=== PATIENT | female | born 1940 | race Caucasian/White ===

== ENCOUNTER → 2017-06-05 | Outpatient (CLI) | payer MEDICARE, OTHER ==
[~2017-06-05] MED LIST: ASPIR 8181 MG PO; ATORVASTATIN CA40 MG PO; CARVEDILOL12.5 MG PO; CELEXA20 MG PO; COZAAR 25 MG TA25 MG PO; EVISTA PO; FISH OIL 1,001000 M2 PO; LANTUS SUBQ; METFORMIN HCL500 MG PO; NITROGLYCERIN0.4 MG SUBLING
== END ==
LOC: M.RAD 09:51
DX: Z12.31 Encounter for screening mammogram for malignant neoplasm of breast (principal)

== ENCOUNTER → 2018-07-24 | Outpatient (CLI) | payer MEDICARE, OTHER | LOC: M.RAD 07-19 15:36 | DX: Z12.31 Encounter for screening mammogram for malignant neoplasm of breast (principal); M85.80 Other specified disorders of bone density and structure, unspecified site; E28.39 Other primary ovarian failure ==

== ENCOUNTER 2019-06-29 08:30 | Inpatient (IN) | payer MEDICARE, OTHER ==
[~2019-06-29] VITALS: Ht 157.5 cm; Wt 66.2 kg
--- NOTE | ~2019-06-29 | CON ---
[address] [address] CONSULTATION Name: MAURICE DAVIDSON Room: [address] [place] .#: [id number] Admission: 06/29/19 Attend Phys: Katey Humphries Discharge: Date of : 42 Report #: [id number] THIS REPORT FOR: //name// cc: Bipin Weathers MD, Tuongvan T. MD ~ THIS REPORT FOR: //name// CC: Bipin Lopes DATE OF SERVICE: 06/30/2019 REASON FOR CONSULT: Blood in the sputum. HISTORY OF PRESENT ILLNESS: This is a 78-year-old female who was admitted to hospital with hemoptysis. She reports that has been a chronic issue for her and since she was noticing more and more blood in her sputum, this prompted her to come to hospital. She had a CT of the chest, which did not reveal any lung mass. The patient denies any significant chronic upper GI or lower GI symptoms. Since hospitalization, she has been having symptoms of nausea and vomiting. There is also mild right upper quadrant pain, which is intermittent. PAST MEDICAL HISTORY: Significant for history of hemoptysis, which have been going on for the last couple of months. She also has diabetes mellitus requiring insulin, hyperlipidemia, hypertension, history of hysterectomy. ALLERGIES: No known drug allergies. MEDICATIONS: Please refer to MAR. SOCIAL HISTORY: The patient lives at home. Denies tobacco or alcohol use. FAMILY HISTORY: Negative for GI malignancies. PHYSICAL EXAMINATION: VITAL SIGNS: Reveals blood pressure of 123/97, respirations 20, pulse 93, temperature 98.1. LUNGS: Clear. CARDIOVASCULAR: Regular. ABDOMEN: Soft, mildly tender to palpation in the epigastric region. Bowel sounds are positive. NEUROLOGIC: The patient is alert and oriented x 3. LABORATORY DATA: Reveal sodium of 140, potassium 3.4, BUN is 11, creatinine 0.8, glucose 218. Liver functions are within normal limits. Total bilirubin is 0.5. WBC is 10.2, hemoglobin is 15 with platelets of 292. [place] [address] CONSULTATION Name: MAURICE DAVIDSON Room: [address] [place] [facility]#: [id number] Admission: 06/29/19 Attend Phys: Katey Humphries Discharge: Date of : 42 Report #: [id number] IMAGING: CT of the chest was done, which did not reveal any mass. CT of abdomen and pelvis has been ordered and pending results. ASSESSMENT AND PLAN: The patient with report of hemoptysis, which has been going on for a while and also blood in the sputum. She has some nausea and vomiting and has not seen blood in her emesis. I believe the vomiting may be due to the fact that she has diabetes and her blood sugar has been running high. I will put her on double dose of Protonix and also Reglan 5 mg a.c. and at bedtime. We will continue monitoring the patient and make further recommendation. If her nausea and vomiting do not improve, we may consider upper endoscopy. She will need a screening colonoscopy post COVID-19. By: [id number] Trevizo MD /nt
[2019-06-29 08:38] VITALS: BP 200/103
[2019-06-29 09:07] LABS: URINE BILIRUBIN NEGATIVE (Negative); URINE BLOOD NEGATIVE (Negative); URINE CLARITY CLEAR; URINE COLOR YELLOW; URINE GLUCOSE-RANDOM NEGATIVE (Negative); URINE KETONES NEGATIVE (Negative); URINE LEUKOCYTES-REFLEX NEGATIVE (Negative); URINE NITRITE-REFLEX NEGATIVE (Negative); URINE PROTEIN NEGATIVE (Negative); URINE SPECIFIC GRAVITY 1.025 (1.005-1.030); URINE UROBILINOGEN 0.2 E.U./dl (0.2-1.0)
[2019-06-29 09:22] LABS: ABSOLUTE BASOPHILS 0.1 thou/uL (0.0-0.2); ABSOLUTE EOSINOPHILS 0.4 thou/uL (0.0-0.7); ABSOLUTE MONOCYTES 0.6 thou/uL (0.0-1.2); ABSOLUTE NEUTROPHILS 4.7 thou/uL (1.6-8.1); BASOPHILS 0.9 %; EOSINOPHILS 4.1 %; HEMOGLOBIN 16.8 gm/dL (12.0-15.0); LYMPHOCYTES 33.9 %; MCH 30.7 pg (26.0-34.0); MCV 87.9 fL (80.0-100.0); MONOCYTES 6.9 %; MPV 7.4 fl. (7.2-11.1); NUCLEATED RBCS 0 /100WBC; PLATELET COUNT* 323 thou/uL (150-400); POLYS 54.2 %; RBC 5.46 mil/uL (4.20-5.00); RDW-CV 13.1 % (10.5-14.5); WBC 8.7 thou/uL (4.0-11.0)
[2019-06-29 09:32] LABS: CREATININE 1.1 mg/dL (0.6-1.3); POTASSIUM 3.8 mmol/L (3.5-5.1)
[2019-06-29 09:36] LABS: ALBUMIN 4.1 g/dL (3.4-5.0); MAGNESIUM 1.9 mg/dL (1.8-2.4); TOTAL BILIRUBIN 0.5 mg/dL (<0.1-1.0); TOTAL PROTEIN 7.5 g/dL (6.4-8.2)
[2019-06-29 09:37] LABS: APTT 26.2 Seconds (25.0-31.3); PROTIME 10.5 Seconds (9.20-11.50)
[2019-06-29 12:18] LABS: INFLUENZA A ANTIGEN Negative (Negative); INFLUENZA B ANTIGEN Negative (Negative)
[2019-06-29 12:21] VITALS: BP 174/91
[2019-06-29 12:30] VITALS: BP 177/91
--- NOTE | 2019-06-29 13:10 | NUR ---
ASSUMED PT CARE REPORT RECEIVED FROM NURSE. PT IS AOX4. SR ON ADMINISTRATOR. VSS. NO BLOOD NOTICED. ACCUCHCEK. IV FLUID INFUSING AT 100 PER HOUR. IV LINE PATENT. DENIES PAIN. COVID RESULT PENDING. ON ENHANCED ISOLATION. FOOD PROVIDED. CALL LIGHT WITHIN REACH. WILL CONTINUE TO MONITOR
--- NOTE | 2019-06-29 15:58 | NUR ---
PT ATE LUNCH. NO COMPLAINT OF N.V. GI CONSULT CALLED IN. SPOKE WITH DR CRAMER WHO STATED THAT HE WILL SEE PT THE NEXT DAY.
[2019-06-29] MEDS ORDERED: OMEPRAZOLE 20 M20 M1 PO (16:19)
[2019-06-29] MEDS ORDERED: NYSTATIN1 EA10 TRANSDERM (16:19)
[2019-06-29] MEDS ORDERED: LIPITOR 40 MG T40 M1 PO (16:20)
[2019-06-29] MEDS ORDERED: MYRBETRIQ25 MG PO (16:20)
[2019-06-29] MEDS ORDERED: PROZAC20 M1 PO (16:21)
--- NOTE | 2019-06-29 16:21 | NUR ---
medication list update
--- NOTE | 2019-06-29 16:23 | NUR ---
lactic acid trending up. dr notified. standing order for normal saline received from pharmacy made aware. will await for order to proceed. med list updated by calling the patient's pharmacy
[2019-06-29 17:59] VITALS: BP 160/71
[2019-06-29 20:00] VITALS: BP 186/67
[2019-06-30 00:02] VITALS: BP 170/72
[2019-06-30 04:30] VITALS: BP 130/55
--- NOTE | 2019-06-30 05:08 | NUR ---
ASSESSMENT COMPLETED CHARTED, MEDICATIONS ADMINISTERED PER MAR. HOURLY ROUNDING FOR SAFETY, CALL LIGHT WITHIN REACH, NO CURRENT C/O PAIN OR DISCOMFORT NOTED AT THIS TIME. PT DID EXPERIENCE EPISODE OF N/V, ORDERS OBTAINED, PRN MEDICATION GIVEN WITH FULL RELIEF.
[2019-06-30 08:00] VITALS: BP 180/75
[2019-06-30 10:25] LABS: ABSOLUTE BASOPHILS 0.1 thou/uL (0.0-0.2); ABSOLUTE EOSINOPHILS 0.4 thou/uL (0.0-0.7); ABSOLUTE LYMPHOCYTES 2.3 thou/uL (0.8-5.3); ABSOLUTE MONOCYTES 0.6 thou/uL (0.0-1.2); ABSOLUTE NEUTROPHILS 6.9 thou/uL (1.6-8.1); BASOPHILS 0.7 %; EOSINOPHILS 4.2 %; HEMATOCRIT 43.7 % (37.0-47.0); LYMPHOCYTES 22.5 %; MCH 30.5 pg (26.0-34.0); MCHC 34.2 g/dL (28.0-37.0); MCV 89.2 fL (80.0-100.0); MONOCYTES 5.6 %; MPV 7.6 fl. (7.2-11.1); NUCLEATED RBCS 0 /100WBC; PLATELET COUNT* 292 thou/uL (150-400); RDW-CV 13.2 % (10.5-14.5); WBC 10.2 thou/uL (4.0-11.0)
[2019-06-30 10:38] LABS: ALBUMIN 3.5 g/dL (3.4-5.0); CALCIUM 9.1 mg/dL (8.5-10.1); CREATININE 0.8 mg/dL (0.6-1.3); POTASSIUM 3.4 mmol/L (3.5-5.1); TOTAL BILIRUBIN 0.5 mg/dL (<0.1-1.0); TOTAL PROTEIN 6.4 g/dL (6.4-8.2)
[2019-06-30 12:13] VITALS: BP 123/97
--- NOTE | 2019-06-30 12:51 | NUR ---
ASSUMED PT CARE REPORT RECEIVED FROM NURSE. PT IS AOX4. ON RA. COMPLAINS THAT SHE IS AFRAID THAT SHE WOULD VOMIT THIS AM. ZOFRAN GIVEN FOR N/V. PT VOMITED AFTER BREAKFAST. ACCUCHECK. HYDRALIZINE AND COREG GIVEN FOR INCREASED BP. GI NOTIFIED OF PT VOMITING. NEW ORDER RECEIVED SEE EMAR. CALL LIGHT WITHIN REACH. WILL CONTINUE TO MONITOR PT
--- NOTE | 2019-06-30 13:38 | NUR ---
BP DECREASED AT 1200 SEE CHART. IV ZOFRAN GIVEN FOR NAUSEA AND VOMITING AGAIN. PT IS SCHEDULED FOR A CT OF ABDOMEN TODAY/ AWAITING TUCK POINTER HELPER
[2019-06-30 16:00] VITALS: BP 168/78
--- NOTE | 2019-06-30 19:12 | NUR ---
PT NAUSEA WAS ASSESSED ONE HOUR AFTER ZOFRAN ADMINISTRATION. PT STATED THAT SHE DID NOT FEEL NAUSEOUS AT THAT TIME. IV INFUSING. CALL LIGHT AT REACH.
[2019-06-30 20:30] VITALS: BP 165/64
--- NOTE | 2019-06-30 20:30 | NUR ---
RECEIVED REPORT AND ASSUMED CARE OF PT, ASSESSMENT COMPLETED. NO COMPLAINTS VOICED. TELEMETRY ON SHOWING SR. WILL CONT TO MONITOR AND ASSIST NEEDED.
[2019-07-01 00:30] VITALS: BP 160/71
[2019-07-01 04:54] LABS: HEMATOCRIT 42.1 % (37.0-47.0); HEMOGLOBIN 14.6 gm/dL (12.0-15.0); MCH 30.8 pg (26.0-34.0); MCHC 34.8 g/dL (28.0-37.0); MCV 88.5 fL (80.0-100.0); RBC 4.76 mil/uL (4.20-5.00); RDW-CV 13.2 % (10.5-14.5)
[2019-07-01 05:24] LABS: ALBUMIN 3.4 g/dL (3.4-5.0); CALCIUM 8.6 mg/dL (8.5-10.1); CREATININE 0.8 mg/dL (0.6-1.3); POTASSIUM 3.2 mmol/L (3.5-5.1); TOTAL BILIRUBIN 0.6 mg/dL (<0.1-1.0); TOTAL PROTEIN 6.2 g/dL (6.4-8.2)
--- NOTE | 2019-07-01 05:54 | NUR ---
SLEPT WELL TONIGHT. UP TO BSC INDEPENDENTLY, VOIDING WITHOUT DIFFICULTY. HAVING OCC MOIST COUGH. TELEMETRY CONT TO SHOW SR. HS GOALS OF REST AND SAFETY ACHIEVED.
--- NOTE | 2019-07-01 10:16 | EKG ---
[place] [address] ELECTROCARDIOGRAM REPORT Name: MAURICE DAVIDSON Room: [address] ADM [place] ..#: [id number] Admission: 06/29/19 Attend Phys: Mekhi Lopes Discharge: Date of : 42 Date of Service: 06/29/19 0846 Report #: [id number] THIS REPORT FOR: //name// [facility] ED Test Date: 2019-06-29 Test Time: 08:46:56 Pat Name: MAURICE DAVIDSON Department: Room: [address] Gender: F Entertainment Musician: : [id number] Requested By: Jena Parr Order Number: [id number] Reading MD: Glenn Hutchins Measurements Intervals [place] Rate: 91 P: 41 GA: 149 QRS: -74 QRSD: 99 T: 75 QT: 380 QTc: 468 Interpretive Statements Sinus rhythm Left anterior fascicular block Abnormal R-wave progression, late transition Baseline wander in lead(s) III,V1,V2,V5,V6 Compared to ECG 05/29/2015 12:19:56 Sinus bradycardia no longer present Electronically Signed On 07-01-2019 10:15:00 CDT by Glenn Hutchins [email or web address] <ELECTRONICALLY SIGNED> By: Glenn Hutchins MD, [facility] 07/01/19 1015 5 Glenn Hutchins MD, [facility] /EPI
[2019-07-01 12:00] VITALS: BP 155/74
--- NOTE | 2019-07-01 12:03 | NUR ---
CM SPOKE TO THE PT TO DISCUSS HER HOME SITUATION, COGNITION AND MOBILITY STATUS, AND TO INFORM OF THE ROLE OF CM. PT INFORMS THAT PRIOR TO ADMISSION SHE RESIDED IN HER INDEPENDENT LIVING APT ALONE, AND WAS INDEPENDENT WITH ALL CARES. PT OWNS A CANE, BUT USES NO OTHER DME. PT HAS NO HX OF HH OR SNF, AND PLANS TO RETURN HOME AT D/C. PT INFORMS THAT HER SON RESIDES IN [place] AND SISTER RESIDES IN [place] AND HAS NO TO ASSIST WITH TRANSPORTATION. PT WILL NEED A CAB VOUCHER AT D/C FOR TRANSPORT HOME. RN INFORME OF THIS INFO. OT INFORMS THAT THE [facility]YSICAN MAY D/C HER TODAY. RN IN-CHARGE OF THE PT INFORMS THAT THE PT WOULD BE MOVING TO ANOTHER UNIT HER COVID-19 TESTING IS NEGATIVE. CM WILL REMAIN AVAILABLE TO ASSIST AND FOLLOW WITH DISCHARGE PLANNING NEEDED.
[2019-07-01 16:00] VITALS: BP 158/78
--- NOTE | 2019-07-01 18:25 | NUR ---
PT A&OX4 VSS. PT RESULTS NEGATIVE FOR COVID. PT REMAINS ON DROPLET PRECAUTIONS. PT ON ROOM AIR, SAT 93%. PT UP AD PRESTON, GAIT STEADY. PT REMAINS CONTINENT OF B/B. IV TO L HAND PATENT, SALINE LOCKED. IV FLUIDS DC'D. PT IS ACCUCHECK. GI HAS DECLINED TO DO EGD AT THIS TIME, DR SNIDER NOTIFIED. PT IS CLEARED FROM GI STANDPOINT. PRN PO ATIVAN ORDERED THIS SHIFT PER DR SNIDER. PT STATES SHE IS ANXIOUS TO DC HOME BLANE. PT RESTS IN ROOM WITH CALL LIGHT IN REACH. WILL CONTINUE TO MONITOR.
[2019-07-01 19:50] VITALS: BP 206/91
[2019-07-01 23:52] VITALS: BP 226/106
[2019-07-02 00:34] VITALS: BP 205/98
[2019-07-02 04:13] VITALS: BP 109/57
--- NOTE | 2019-07-02 06:00 | NUR ---
BP CONTINUED TO BE HIGH THROUGH HALF SHIFT DESPITE GETTING SCHLD PO AND PRN IV BP MEDS. DR LYLE PAGED FOR SYS IN THE 200'S. LISINOPRIL 10MG ORDERED BID TO START AT THAT TIME. LISINOPRIL GIVEN ORDERED. PT'S BP @0400 = 109/57. PT UP AD PRESTON. DROPLET PRECAUTION IN PLACE C/O NEGATIVE COVID-19 RESULT. PT ANTICIPATING DC TODAY. WILL CONTINUE TO MONITOR.
[2019-07-02 08:00] VITALS: BP 168/93
[2019-07-02] MEDS ORDERED: MELATONIN5 M1 PO (10:54)
[2019-07-02] MEDS ORDERED: LISINOPRIL20 MG PO (10:56)
[2019-07-02] MEDS ORDERED: CARVEDILOL12.5 MG PO (10:56)
--- NOTE | 2019-07-02 11:47 | NUR ---
Pt discharging to home today, ordered HH, Pt declined, updated charge nurse.
[2019-07-02 11:52] VITALS: BP 168/93
--- NOTE | 2019-07-02 12:59 | NUR ---
VSS, A&OX4, SR ON TELE, UP AD PRESTON, HOURLY ROUNDING PERFORMED, POSSESSIONS AND CALL LIGHT WITHIN REACH. REC DISCHARGE ORDERS, REVIEWED WITH PATIENT, SCRIPT SENT ELECTRONICALLY, CARE NOTES PROVIDED, IV REMOVED WITHOUT COMPLICATION, CAB CALLED FOR PATIENT, PATIENT TAKEN TO FRONT DOOR IN WHEELCHAIR BY NURSING STAFF, PICKED UP BY CAB AT FRONT DOOR
== END 2019-07-02 13:15 | disposition home or self-care (01) | DRG 378 ==
LOC: M.ERS 08:30 → M.TBA-ER 10:44 → M.2W 10:44
PROVIDERS: Personal Emergency Response Attendant; ADMIT Internal Medicine
DX: K92.2 Gastrointestinal hemorrhage, unspecified (principal); R04.2 Hemoptysis; E87.2 Acidosis; I16.0 Hypertensive urgency; E78.5 Hyperlipidemia, unspecified; E11.9 Type 2 diabetes mellitus without complications; I10 Essential (primary) hypertension; Z90.710 Acquired absence of both cervix and uterus; Z83.3 Family history of diabetes mellitus; Z82.49 Family history of ischemic heart disease and other diseases of the circulatory system; Z03.818 Encounter for observation for suspected exposure to other biological agents ruled out; Z79.899 Other long term (current) drug therapy

== ENCOUNTER → 2020-12-02 | Outpatient (CLI) | payer OTHER ==
[~2020-12-02] MED LIST changes: +LIPITOR 40 MG T40 M1 PO; +LISINOPRIL20 MG PO; +MELATONIN5 M1 PO; +MYRBETRIQ25 MG PO; +NYSTATIN1 EA10 TRANSDERM; +OMEPRAZOLE 20 M20 M1 PO; +PROZAC20 M1 PO
== END ==
LOC: M.RAD 11-18 08:57
PROVIDERS: ATTEND Family Medicine
DX: Z12.31 Encounter for screening mammogram for malignant neoplasm of breast (principal); M85.88 Other specified disorders of bone density and structure, other site; M81.8 Other osteoporosis without current pathological fracture; N64.89 Other specified disorders of breast

== ENCOUNTER → 2020-12-09 | Outpatient (CLI) | payer OTHER | LOC: M.ULTRA 10:30 | PROVIDERS: ATTEND Family Medicine | DX: N63.11 Unspecified lump in the right breast, upper outer quadrant (principal) ==